=== PATIENT | female | born 2000 | race Caucasian/White ===

== ENCOUNTER 2020-11-12 20:20 | Emergency (ER) | payer OTHER ==
[~2020-11-12] VITALS: Ht 172.7 cm; Wt 74.9 kg
--- NOTE | 2020-11-12 21:43 | REPVR ---
PROCEDURE INFORMATION: Exam: US First Trimester, Transabdominal Exam date and time: 11/12/2020 9:14 PM Age: 20 years old Clinical indication: Lmp or gestational age (in weeks): 12w 1d; Other: Vaginal bleeding; TECHNIQUE: Imaging protocol: Real-time transabdominal obstetrical ultrasound of the maternal pelvis and a first trimester , less than 14 weeks 0 days, with image documentation. COMPARISON: No relevant prior studies available. FINDINGS: Gestation: Single gestational sac in the uterus. Embryonic/ heart rate: heart rate 158 bpm. Extra-embryonic membranes/Placenta: A large subchorionic hemorrhage is demonstrated measuring 10.7 x 1.8 x 8.9 cm. Amniotic fluid: Amniotic fluid is normal for gestational age. BIOMETRY: Gestational age (AUA): Gestational age based on crown-rump length is 12 weeks 2 days. Gestational age based on LMP of 08/25/2020 is 11 weeks 2 days. [place]-Rump length: Single the living intrauterine gestation demonstrated with a crown-rump length of 56 mm. MATERNAL: Uterus: Unremarkable. Cervix: Unremarkable. Right adnexa: Unremarkable. Left adnexa: Unremarkable. Intraperitoneal space: No intraperitoneal free fluid. IMPRESSION: 1. A large subchorionic hemorrhage is demonstrated measuring 10.7 x 1.8 x 8.9 cm. 2. Otherwise unremarkable scan at 12 weeks 2 days using crown-rump length. Electronically signed by: Aden Anders On 11/12/2020 21:42:59 PM
[2020-11-13 00:06] LABS: BASO % 0.5 % (0.0-1.0); EOS # 0.1 10^3/uL (0.0-0.5); EOS % 1.3 % (0.0-3.0); HEMATOCRIT 39.9 % (36.0-47.0); LYMPH # 1.6 10^3/uL (1.5-5.0); LYMPH % 20.6 % (24.0-44.0); MEAN CORPUSCULAR HEMOGLOBIN 30.2 pg (27.0-33.0); MEAN CORPUSCULAR HGB CONC 35.1 g/dl (32.0-36.5); MEAN CORPUSCULAR VOLUME 86.2 fl (80.0-96.0); MONO # 0.3 10^3/uL (0.0-0.8); MONO % 4.4 % (2.0-8.0); NEUTROPHILS # 5.7 10^3/uL (1.5-8.5); NEUTROPHILS % 72.4 % (36.0-66.0); PLATELET COUNT, AUTOMATED 227 10^3/uL (150-450); RED BLOOD COUNT 4.63 10^6/uL (4.00-5.40); WHITE BLOOD COUNT 7.8 10^3/uL (4.0-10.0)
[2020-11-13 02:00] VITALS: BP 130/76
== END 2020-11-13 02:14 | disposition home or self-care (01) ==
LOC: M ED 20:20
DX: O20.8 Other hemorrhage in early pregnancy (principal); Z3A.12 12 weeks gestation of pregnancy

== ENCOUNTER 2021-05-14 07:45 | Inpatient (IN) | payer OTHER ==
[~2021-05-14] VITALS: Ht 172.7 cm; Wt 88.1 kg
[2021-05-14] VITALS (10 sets, daily range): BP systolic 119–159; BP diastolic 57–80
[2021-05-14] MEDS ORDERED: PRENTAB9 PO (08:07)
[2021-05-14] MEDS ORDERED: OXYTOCIN 30 UNITS IN 0.9% NaCl 500ML IV BAG (J2590) As Ordered ONE (08:09)
[2021-05-14 08:28] LABS: HEMATOCRIT 37.9 % (36.0-47.0); HEMOGLOBIN 13.6 g/dl (12.0-15.5); MEAN CORPUSCULAR HEMOGLOBIN 31.9 pg (27.0-33.0); MEAN CORPUSCULAR HGB CONC 35.9 g/dl (32.0-36.5); PLATELET COUNT, AUTOMATED 198 10^3/uL (150-450); RED BLOOD COUNT 4.26 10^6/uL (4.00-5.40); WHITE BLOOD COUNT 10.2 10^3/uL (4.0-10.0)
[2021-05-14] MEDS ORDERED: LIDOCAINE 1% MDV 20ML VIAL As Ordered ONE (08:43)
[2021-05-14] MEDS ORDERED: TRANEXAMIC ACID INJection 1,000 MG in NS 100 ML IV PRN (08:50)
[2021-05-14] MEDS ORDERED: METHYLERGONOVINE MALEATE 0.2 MG/ML VIAL (J2210) IM PRN (08:50)
[2021-05-14] MEDS ORDERED: LIDOCAINE 1% MDV 20ML VIAL INFIL PRN (08:50)
[2021-05-14] MEDS ORDERED: OXYTOCIN DRIP 30 UNITS in IV 1 EA IV PRN ×4 (08:50)
[2021-05-14] MEDS ORDERED: CARBOPROST TROMETHAMINE 250 MCG/ML AMP IM PRN (08:50)
[2021-05-14] MEDS ORDERED: HOME MED LIST COMPLETE! XX SCH (08:55)
[2021-05-14] MEDS ORDERED: METHYLERGONOVINE MALEATE 0.2 MG TAB PO PRN (09:10)
[2021-05-14] MEDS ORDERED: IBUPROFEN 600MG TAB PO PRN (09:10)
[2021-05-14] MEDS ORDERED: MEASLES,MUMPS,RUBELLA VACCINE INJ (MMR-II) (90707) SC SCH (09:10)
[2021-05-14] MEDS ORDERED: DIBUCAINE 1% OINTMENT 30GM TOP PRN (09:10)
[2021-05-14] MEDS ORDERED: IBUPROFEN 800 MG TAB PO PRN (09:10)
[2021-05-14] MEDS ORDERED: LIDOCAINE 1% MDV 20ML VIAL INFIL ONE (09:10)
[2021-05-14] MEDS ORDERED: ACETAMINOPHEN TAB 650MG DOSE (2X325MG) PO PRN (09:10)
[2021-05-14] MEDS ORDERED: DOCUSATE SODIUM 100MG CAPSULE PO PRN (09:10)
[2021-05-14] MEDS ORDERED: OXYTOCIN DRIP 30 UNITS in IV 1 EA IV SCH (09:30)
[2021-05-14] MEDS: ACETAMINOPHEN 500 MG TAB PO PRN (17:31)
[2021-05-15 06:00] VITALS: BP 115/53
[2021-05-15] MEDS ORDERED: PROCTOFOAM-HC 1% FOAM 10 GM CAN PR PRN (06:45)
[2021-05-15] MEDS: ACETAMINOPHEN 500 MG TAB PO PRN (08:37)
[2021-05-15] MEDS ORDERED: PRENATAL VITAMINS CHEWABLE TABLET PO SCH (09:00)
[2021-05-15 17:54] VITALS: BP 136/81
== END 2021-05-15 13:00 | disposition home or self-care (01) | DRG 807 ==
LOC: M LDO 07:45 → M LDI 07:52 → M OBS 11:47
PROVIDERS: ADMIT Advanced Practice Midwife; ATTEND Advanced Practice Midwife
PROC: 10E0XZZ Delivery of Products of Conception, External Approach (ICD-10-PCS; principal; 2021-05-14)
PROC: 0HQ9XZZ Repair Perineum Skin, External Approach (ICD-10-PCS; 2021-05-14)
PROC: 10907ZC Drainage of Amniotic Fluid, Therapeutic from Products of Conception, Via Natural or Artificial Opening (ICD-10-PCS; 2021-05-14)
DX: O70.0 First degree perineal laceration during delivery (principal); Z37.0 Single live birth; Z3A.37 37 weeks gestation of pregnancy; Z20.822 Contact with and (suspected) exposure to COVID-19